=== PATIENT | female | born 1985 | race American Indian/Alaskan Native ===

== ENCOUNTER 2020-09-27 09:07 | Emergency (ER) | payer SELFPAY ==
--- NOTE | 2020-09-27 09:49 | EDM.PDOC ---
ED HPI GENERAL MEDICAL PROBLEM - General Stated Complaint: POISON KHRIS Time Seen by Provider: 09/27/20 09:35 Source of Information: Reports: Patient History Limitations: Reports: No Limitations - History of Present Illness INITIAL COMMENTS - FREE TEXT/NARRATIVE: 34-year-old female with a very active flareup of contact dermatitis on her anterior left thigh, posterior right thigh and buttock and left arm. Is been bothering her for about 3 days, very pruritic and painful. No fevers or chills. She has needed "shots" in the past for poison khris flareups. Onset: Gradual Duration: Day(s): Location: Reports: Upper Extremity, Left, Lower Extremity, Left, Lower Extremity, Right Associated Symptoms: Denies: Fever/Chills, Nausea/Vomiting, Shortness of Breath Left Leg Pain Score (Numeric/FACES): 8 - Related Data Allergies Allergy/AdvReac Type Severity Reaction Status Date / Time No Known Allergies Allergy Verified 09/27/20 09:30 Home Meds: Home Meds NK [No Known Home Meds] 09/27/20 [History] Past Medical History - Past Health History Medical/Surgical History: Denies Medical/Surgical History - Infectious Disease History Infectious Disease History: Reports: None Other Infectious Disease History: had covid vacc Social & Family History - Tobacco Use Tobacco Use Status *Q: Current Every Day Tobacco User Years of Tobacco use: 20 Packs/Tins Daily: 1 - Caffeine Use Caffeine Use: Reports: Coffee, Soda, Tea - Recreational Drug Use Recreational Drug Use: No ED ROS GENERAL - Review of Systems Review Of Systems: See Below Constitutional: Denies: Fever, Chills HEENT: Reports: No Symptoms Respiratory: Reports: No Symptoms GI/Abdominal: Denies: Nausea, Vomiting Neurological: Denies: Paresthesia ED EXAM, SKIN/RASH Exam: See Below Exam Limited By: No Limitations General Appearance: Alert, No Apparent Distress (Looks uncomfortable but not distressed) Head: Atraumatic Respiratory/Chest: No Respiratory Distress Neurological: Alert, Oriented Psychiatric: Anxious Skin: Other (Patient has induration and thickening of the skin on the anterior aspect of the left leg, posterior right buttock and left arm. Looks like there is confluent blistering, moderate tenderness to palpation. It is not warm to touch.) Course - Vital Signs Last Recorded V/S: Last Vital Signs Temp 97.3 F 09/27/20 09:28 Pulse 73 09/27/20 09:28 Resp 16 09/27/20 09:28 BP 141/75 H 09/27/20 09:28 Pulse Ox 100 09/27/20 09:28 - Re-Assessments/Exams Free Text/Narrative Re-Assessment/Exam: 09/27/20 09:47 This patient has some fairly significant contact dermatitis, will be treated with a Medrol Dosepak and oral ketorolac for pain control. She can continue with topical Benadryl and increase activity as tolerated. Return if worsening despite treatment. Departure - Departure Time of Disposition: 09:58 Disposition: Home, Self-Care 01 Clinical Impression: Contact dermatitis - Discharge Information Instructions: Poison Khris Dermatitis, [id number] Referrals: PCP,None [Primary Care Provider] - Care Plan Goals: Continue with topical Benadryl or hydrocortisone, take Medrol Dosepak as prescribed and use ketorolac for pain control as needed. Increase activity as tolerated and return if worsening such as fever or increased rash despite treatment. Oral Benadryl may be helpful when trying to sleep. Sepsis Event Note (ED) - Evaluation Sepsis Screening Result: No Definite Risk - Focused Exam Vital Signs: Vital Signs Temp Pulse Resp BP Pulse Ox 09/27/20 09:28 97.3 F 73 16 141/75 H 100
== END 2020-09-27 09:58 | disposition home or self-care (01) ==
LOC: JP.ED 09:07
DX: L25.9 Unspecified contact dermatitis, unspecified cause (principal); Z72.0 Tobacco use
CPT/HCPCS: 99283